=== PATIENT | male | born 1930 | race Caucasian/White ===

== ENCOUNTER 2018-07-03 18:14 | Emergency (ER) | payer MEDICARE, OTHER ==
[2018-07-03] MEDS: Oxymetazoline 0.05% Nasal Spray 15 ML Bottle NAS ONE ×2 (18:24→19:10)
--- NOTE | 2018-07-03 21:53 | EDM.PDOC ---
ED HPI GENERAL MEDICAL PROBLEM - General Chief Complaint: ENT Problem Time Seen by Provider: 07/03/18 18:16 Source of Information: Reports: Patient History Limitations: Reports: No Limitations - History of Present Illness INITIAL COMMENTS - FREE TEXT/NARRATIVE: Pt. states that he had been experiencing epistaxis from both nares for 45 min. prior to presenting to ER. Denies any head or facial trauma. States that he has had intermittent nosebleeds from time to time, but states that this has been minimal. He is not currently anticoagulated. Denies any lightheadedness, weakness, or shortness of breath. Onset: Today Onset Date: 07/03/18 Onset Time: 15:30 Duration: Minutes: (45) Location: Reports: Face Treatments QA ARCHITECT: Reports: Other (see below) (pinching nose) - Related Data Allergies Allergy/AdvReac Type Severity Reaction Status Date / Time No Known Allergies Allergy Verified 07/03/18 19:06 Home Meds: Home Meds amLODIPine [Norvasc] 5 mg PO DAILY 02/20/15 [History] hydroCHLOROthiazide [Hydrochlorothiazide] 25 mg PO DAILY 02/20/15 [History] Past Medical History Cardiovascular History: Reports: Hypertension Genitourinary History: Reports: Prostate Disorder Social & Family History - Tobacco Use Smoking Status *Q: Never Smoker ED ROS GENERAL - Review of Systems Review Of Systems: See Below Constitutional: Reports: No Symptoms HEENT: Reports: Other (epistaxis) Respiratory: Reports: No Symptoms Cardiovascular: Reports: No Symptoms Musculoskeletal: Reports: No Symptoms Skin: Reports: No Symptoms Hematologic/Lymphatic: Reports: No Symptoms ED EXAM, GENERAL - Physical Exam Exam: See Below Exam Limited By: No Limitations General Appearance: Alert, WD/WN, No Apparent Distress Nose: Other (epistaxis from R and L nare (dried and coagulated blood) no active bleeding) Throat/Mouth: Normal Inspection, Normal Lips, Normal Teeth, Normal Gums, Normal Oropharynx, Normal Voice, No Airway Compromise Head: Atraumatic, Normocephalic Respiratory/Chest: No Respiratory Distress, Lungs Clear, Normal Breath Sounds, No Accessory Muscle Use, Chest Non-Tender Cardiovascular: Normal Peripheral Pulses, Regular Rate, Rhythm, No Edema, No Gallop, No JVD, No Murmur, No Rub Extremities: Normal Inspection, Normal Range of Motion, Non-Tender, Normal Capillary Refill, No Pedal Edema Neurological: Alert, Oriented, CN II-XII Intact, Normal Cognition, Normal Gait, Normal Reflexes, No Motor/Sensory Deficits Skin Exam: Warm, Dry, Intact, Normal Color, No Rash Course - Vital Signs Last Recorded V/S: Last Vital Signs Temp 37.4 C 07/03/18 18:14 Pulse 69 07/03/18 19:18 Resp 18 07/03/18 19:18 BP 138/74 07/03/18 19:18 Pulse Ox 95 07/03/18 19:18 - Orders/Labs/Meds Labs: Laboratory Tests 07/03/18 07/03/18 Range/Units 18:30 18:30 WBC 8.1 (4.0-10.0) x10^3/uL RBC 5.30 (4.5-6.0) x10^6/uL Hgb 14.4 (14.0-18.0) g/dL Hct 42.3 (40.0-52.0) % MCV 79.8 (78.0-93.0) fL MCH 27.2 (26.0-32.0) pg MCHC 34.0 (32.0-36.0) g/dL RDW Coeff of Mirella 17.0 H (10.0-15.0) % Plt Count 225 (130-400) x10^3/uL Neut % (Auto) 64.7 (50.0-80.0) % Lymph % (Auto) 17.8 L (25.0-50.0) % [place] % (Auto) 11.5 H (2.0-11.0) % Eos % (Auto) 5.4 H (0.0-4.0) % Baso % (Auto) 0.6 (0.2-1.2) % PT 9.7 (9.6-11.4) SEC INR 0.9 L (2.0-3.5) Meds: Medications Discontinued Medications Generic Name Dose Route Start Last Admin Trade Name Freq PRN Reason Stop Dose Admin Oxymetazoline HCl 1 ml 07/03/18 18:19 07/03/18 19:10 Afrin Original 0.05% Nasal [place] GUI 07/03/18 18:20 Not Given ONETIME ONE - Re-Assessments/Exams Free Text/Narrative Re-Assessment/Exam: No obvious source of bleeding noted. Pt. was observed. Epistaxis resolved spontaneously without any intervention. Departure - Departure Time of Disposition: 19:25 Disposition: Home, Self-Care 01 Clinical Impression: Epistaxis - Discharge Information Instructions: Nosebleed, [id number] Referrals: Marichuy Resendiz MD [Primary Care Provider] - Forms: ED Department Discharge Additional Instructions: If the bleeding redevelops, pinch nose tightly and lean forward. Return to ER if the bleeding continues after 30 min. Follow-up in clinic in 7-10 days for recheck. - Assessment/Plan Plan: If the bleeding redevelops, pinch nose tightly and lean forward. Return to ER if the bleeding continues after 30 min. Follow-up in clinic in 7-10 days for recheck.
== END 2018-07-03 19:25 | disposition home or self-care (01) ==
LOC: VM.ED 18:14
DX: R04.0 Epistaxis (principal); I10 Essential (primary) hypertension; Z79.899 Other long term (current) drug therapy
CPT/HCPCS: 36415; 85025; 85610; 99283; A9270-GY

== ENCOUNTER 2018-07-03 22:17 | Emergency (ER) | payer MEDICARE, OTHER ==
[2018-07-03] MEDS ORDERED: Oxymetazoline 0.05% Nasal Spray 15 ML Bottle NAS ONE (22:21)
--- NOTE | 2018-07-04 05:33 | EDM.PDOC ---
ED HPI GENERAL MEDICAL PROBLEM - General Chief Complaint: ENT Problem Stated Complaint: nosebleed Time Seen by Provider: 07/03/18 22:17 Source of Information: Reports: Patient History Limitations: Reports: No Limitations - History of Present Illness INITIAL COMMENTS - FREE TEXT/NARRATIVE: Pt. presents back to ER with complaints of R nare epistaxis. Seen in ER earlier this evening for the same, but it resolved on its own. Pt. states that when he got home, he took his usual nasal stray which restarted the bleeding. States that it bled for approx. 30 min prior to arrival. Denies any trauma. HGB was stable during earlier visit. Onset Date: 07/03/18 Location: Reports: Face - Related Data Allergies Allergy/AdvReac Type Severity Reaction Status Date / Time No Known Allergies Allergy Verified 07/03/18 22:38 Home Meds: Home Meds amLODIPine [Norvasc] 5 mg PO DAILY 02/20/15 [History] hydroCHLOROthiazide [Hydrochlorothiazide] 25 mg PO DAILY 02/20/15 [History] Past Medical History Cardiovascular History: Reports: Hypertension Genitourinary History: Reports: Prostate Disorder ED ROS GENERAL - Review of Systems Review Of Systems: See Below Constitutional: Reports: No Symptoms HEENT: Reports: Nosebleed Respiratory: Reports: No Symptoms Cardiovascular: Reports: No Symptoms Endocrine: Reports: No Symptoms GI/Abdominal: Reports: No Symptoms. Denies: Nausea, Vomiting Musculoskeletal: Reports: No Symptoms Skin: Reports: No Symptoms Neurological: Reports: No Symptoms Psychiatric: Reports: No Symptoms Hematologic/Lymphatic: Reports: No Symptoms Immunologic: Reports: No Symptoms ED EXAM, GENERAL - Physical Exam Exam: See Below Exam Limited By: No Limitations General Appearance: Alert, WD/WN, No Apparent Distress Nose: Other (Controlled epistaxis from R nare, no active bleeding) Throat/Mouth: Normal Inspection, Normal Lips, Normal Teeth, Normal Gums, Normal Oropharynx, Normal Voice, No Airway Compromise Head: Atraumatic, Normocephalic Neck: Normal Inspection, Supple, Non-Tender, Full Range of Motion Respiratory/Chest: No Respiratory Distress, Lungs Clear, Normal Breath Sounds, No Accessory Muscle Use, Chest Non-Tender Cardiovascular: Normal Peripheral Pulses, Regular Rate, Rhythm, No Edema, No Gallop, No JVD, No Murmur, No Rub ED GENERAL MEDICAL PROCEDURES - Additional/Other Procedure(s) Other (Free Text) Procedure(s): 2 sprays of afrin were instilled in R nare. No obvious source of bleed indentified. Nare was packed with 1/4 in cotton packing ribbon. No further epistaxis noted. Pt. remained stable in ER. Course - Vital Signs Last Recorded V/S: Last Vital Signs Temp 36.6 C 07/03/18 22:17 Pulse 98 07/03/18 22:17 Resp 20 07/03/18 22:17 BP 151/76 H 07/03/18 22:17 Pulse Ox 96 07/03/18 22:17 - Orders/Labs/Meds Meds: Medications Discontinued Medications Generic Name Dose Route Start Last Admin Trade Name Freq PRN Reason Stop Dose Admin Oxymetazoline HCl 1 ml 07/03/18 22:21 07/03/18 22:25 Afrin Original 0.05% Nasal [place] GUI 07/03/18 22:22 2 spray ONETIME ONE Administration Departure - Departure Time of Disposition: 23:17 Disposition: Home, Self-Care 01 Condition: Good Clinical Impression: Epistaxis, recurrent - Discharge Information Instructions: Nosebleed, Adult Referrals: Marichuy Resendiz MD [Primary Care Provider] - Forms: ED Department Discharge Additional Instructions: Keep packing in. Have the nurse at [facility] remove it tomorrow afternoon. Do pick at either side of your nose. Do not use any nasal spray for 2 weeks. Do not blow your nose for 2 days. Return if you have recurrence of the bleeding, and we will place a different packing device that inflates in your nose.
== END 2018-07-03 23:17 | disposition home or self-care (01) ==
LOC: VM.ED 22:17
DX: R04.0 Epistaxis (principal); Z79.899 Other long term (current) drug therapy
CPT/HCPCS: 30901; 99283; A9270